=== PATIENT | female | born 1950 | race Caucasian/White ===

== ENCOUNTER 2017-03-26 16:05 | Emergency (ER) | payer MEDICARE, BC ==
[~2017-03-26] VITALS: Ht 160 cm; Wt 59.0 kg
[2017-03-26] MEDS ORDERED: LEVO25TA2 PO (16:22)
[2017-03-26] MEDS ORDERED: METH54TA PO (16:22)
[2017-03-26] MEDS ORDERED: FLUO40CA8 PO (16:22)
[2017-03-26] MEDS: MORPHINE SULFATE 4 MG/1 ML DISP.SYRIN IM ONE (16:46)
[2017-03-26] MEDS: ONDANSETRON 4 MG/2 ML VIAL IM ONE (16:47)
[2017-03-26] MEDS ORDERED: ONDANSETRON 4 MG/2 ML VIAL ONE (16:55)
[2017-03-26] MEDS ORDERED: MORPHINE SULFATE 4 MG/1 ML DISP.SYRIN ONE (16:55)
--- NOTE | 2017-03-26 18:26 | NUR ---
Patient discharged to home in stable conditon. Written and verbal after care instructions given. Patient verbalizes understanding of instructions.PT WALKS IN STEADY GAIT. PT ACCOMPANIED BY . PT NOT DRIVING. PT SAYS THE PAIN HAS COME DOWN TO TOLERABLE LEVEL.
[2017-03-26 18:35] VITALS: BP 132/69
== END 2017-03-26 18:35 | disposition home or self-care (01) ==
LOC: ER 16:05
DX: S02.2XXA Fracture of nasal bones, initial encounter for closed fracture (principal); S00.83XA Contusion of other part of head, initial encounter; F32.9 Major depressive disorder, single episode, unspecified; M79.642 Pain in left hand; Z88.6 Allergy status to analgesic agent; W01.0XXA Fall on same level from slipping, tripping and stumbling without subsequent striking against object, initial encounter; Y93.89 Activity, other specified; Y99.8 Other external cause status; Y92.481 Parking lot as the place of occurrence of the external cause
CPT/HCPCS: 70486; 73130; A4663; J2270; J2405